=== PATIENT | female | born 1970 | race Hispanic/Latino ===

== ENCOUNTER → 2016-08-29 | Outpatient (CLI) | payer OTHER ==
--- NOTE | 2016-08-29 16:56 | REPMRS ---
Patient History The patient states she has not had a clinical breast exam in over a year. Digital Mammo Screening Bilat: August 29, 2016 - Exam #: [id number] Bilateral CC and MLO view(s) were taken. Technologist: Lor Hickey, Technologist Prior study comparison: August 23, 2014, digital mammo diagnostic bilateral performed at [facility]. June 09, 2013, digital mammo diagnostic bilateral performed at [facility]. April 08, 2012, digital mammo diagnostic bilateral performed at [facility]. FINDINGS: The breast tissue is heterogeneously dense. This may lower the sensitivity of mammography. There is a moderate amount of heterogeneously dense fibroglandular tissue which is fairly symmetric. There is no interval development of dominant mass, architectural distortion, or clustered microcalcification typical of malignancy. There has been no change in the appearance of the mammogram from the prior studies. ASSESSMENT: BI-RADS/ACR category 1 mammogram. Negative. Recommendation Routine screening mammogram of both breasts in 1 year (for women over age 40). This mammogram was interpreted with the aid of an FDA-approved computer-aided dectection system. Electronically Signed By: Matt Elliott MD 08/29/16 [id number]
== END ==
LOC: M RAD 16:10
PROVIDERS: ATTEND Internal Medicine
DX: Z12.31 Encounter for screening mammogram for malignant neoplasm of breast (principal)

== ENCOUNTER → 2016-10-29 | Day surgery (SDC) | payer OTHER ==
[~2016-10-29] VITALS: Ht 152.4 cm; Wt 64.9 kg
[~2016-10-29] MED LIST: ACETAMINOPHEN 650 MG SUPP As Ordered ONE; ACETAMINOPHEN 650 MG SUPP PR ONE; BUPIVACAINE HCL 0.5% 30 ML VIAL As Ordered ONE; COLA100C3 PO; CYCL5TA PO; GLYCOPYRROLATE INJ 0.2 MG/ML 2 ML VIAL As Ordered ONE; HYDROmorphone HCL 1 MG/ML SYRINGE (J1170) IV PRN; HYDROmorphone HCL 2 MG/ML 1ML VIAL (J1170) As Ordered ONE; IRON65TA PO; LIDOCAINE 2% INJ 100 MG/5 ML SDV (FOR ANES.) As Ordered ONE; LR 1,000 ML IV SCH; MIDAZOLAM INJ 2 MG/2 ML VIAL (J2250) As Ordered ONE; NS 1,000 ML IV SCH; ONDANSETRON 4MG/2ML VIAL (J2405) As Ordered ONE; ONDANSETRON 4MG/2ML VIAL (J2405) IV PRN; PERCOCET 5MG/325MG TAB PO PRN; PROPOFOL 200 MG/20 ML VIAL As Ordered ONE; ROCURONIUM BROMIDE 50 MG/5 ML VIAL As Ordered ONE; SODIUM CHLORIDE 0.9% 1000 ML IV SCH; dexameTHASONE 4 MG/ML 1ML VIAL (J1100) As Ordered ONE; fentaNYL 100 MCG/2 ML INJECTION (J3010) As Ordered ONE; fentaNYL 100 MCG/2 ML INJECTION (J3010) IV PRN; fentaNYL 250 MCG/5 ML INJECTION (J3010) As Ordered ONE
[2016-10-29 07:43] LABS: MEAN CORPUSCULAR HEMOGLOBIN 29.2 pg (27.0-33.0); MEAN CORPUSCULAR HGB CONC 34.8 g/dl (32.0-36.5); MEAN CORPUSCULAR VOLUME 83.8 fl (80.0-96.0); RED CELL DISTRIBUTION WIDTH 17.3 % (11.5-14.5); WHITE BLOOD COUNT 7.8 K/mm3 (4.0-10.0)
[2016-10-29 08:11] LABS: ANION GAP 7 MEQ/L (8-16); BLOOD UREA NITROGEN 12 MG/DL (7-18); CALCIUM LEVEL 8.4 MG/DL (8.5-10.1); CARBON DIOXIDE LEVEL 23 MEQ/L (21-32); CHLORIDE LEVEL 107 MEQ/L (98-107); CREATININE FOR GFR 0.69 MG/DL (0.55-1.02); GLOMERULAR FILTRATION RATE > 60.0 (>58); GLUCOSE, FASTING 99 MG/DL (70-105); POTASSIUM SERUM 3.5 MEQ/L (3.5-5.1); SODIUM LEVEL 137 MEQ/L (136-145)
[2016-10-29 13:00] VITALS: BP 119/72
--- NOTE | 2016-11-01 07:27 | RO ---
DATE OF PROCEDURE: 10/29/2016 PREOPERATIVE DIAGNOSIS: Chronic pelvic pain, abnormal uterine bleeding. POSTOPERATIVE DIAGNOSIS: Chronic pelvic pain, abnormal uterine bleeding, frozen pelvis, massive adhesions, cervical stenosis. OPERATION PROPOSED: Hysteroscopy, dilation and curettage (D and C), laparoscopy. OPERATION PERFORMED: Laparoscopy, dilatation of the cervix. SURGEON: Dr. Chucho Canchola WOODWORK SALVAGE INSPECTOR: Lamine ANESTHESIA: General plus local anesthetic for intraperitoneal procedures. ESTIMATED BLOOD LOSS: 25 mL. Under adequate anesthesia, prepped and draped in the lithotomy position, García catheter in the bladder draining clear urine, acetaminophen suppository 1300 mg per rectum, and sequentials on board. Time-out performed. Weighted speculum was placed in the vagina. The cervix is very high anterior, actually abnormally placed underneath the symphysis pubis, and the cervix was quite stenotic. We were able to get a small dilator in, in order to use it as anatomical probe; however, it did not go in significantly far enough as there seemed to be some obstruction at the isthmic junction between the cervix and uterus. Then reprepping and draping. A small subumbilical incision was made. Direct entry into the abdomen. No evidence of perforation, hemorrhage or bleeding. We immediately came in contact with massive abdominal adhesions going from the left side to the right side at the umbilical area, a thick veil obliterating the pelvic structures. We put a 5 mm port on the right side. We were unable to put a 5 mm port on the left side because we could not see initially. With the 5 mm port on the right side, we were able to move the adhesive bands away so we could get around with the camera and visualize the cul-de-sac. We were unable to identify the uterus initially because we thought it was in the pelvic cavity, but in fact it was stuck and adherent to the anterior abdominal wall and this is why the cervix was so stenotic and in an anatomically incorrect position. This lady had had two previous sections and apparently the uterus is fused to the anterior abdominal wall. Also, we were unable to see the ovary because the ovary itself was fused to the anterior abdominal wall on the left side. The probe itself was in the cervix, but we were unable to manipulate the uterus itself. The cul-de-sac was surprisingly clean. The right upper quadrant was clean. The left upper quadrant we could not visualize because of the thick omental adhesions. This lady has basically was is called a frozen pelvis and has chronic pelvic pain. She is non desiring of any more children and has abnormal uterine bleeding. This lady will be recommended to have a total abdominal hysterectomy (LEVON) and bilateral salpingectomy and attempt to conserve both ovaries, but possibly have to lose the one on the left which is adherent to the anterior abdominal wall. An ablation will not alleviate her issues and in fact we cannot even get into the uterus because it is anatomically into the anterior abdominal wall and with thermal surgery in the uterus we could potentially burn the abdominal wall. With that done, instrument and pad count correct, we deflated to 4 mm pressure, removed the 5 mm port, removed the mainstem port, put stitches in both areas, and removed the García catheter, the uterine elevator and tenaculum. The patient was sent to recovery in good condition. We will discuss options with her at her visit.
== END | disposition home or self-care (01) ==
LOC: M SDC 07:04
PROVIDERS: ATTEND Obstetrics & Gynecology
DX: R10.9 Unspecified abdominal pain (principal); N92.6 Irregular menstruation, unspecified; E78.5 Hyperlipidemia, unspecified; D64.9 Anemia, unspecified; F41.9 Anxiety disorder, unspecified; Z79.899 Other long term (current) drug therapy
CPT/HCPCS: 36415; 49320; 58555; 80048; 84702; 85027; J1100; J1170; J2250; J2405; J3010

== ENCOUNTER 2017-03-18 06:03 | Inpatient (IN) | payer OTHER ==
--- NOTE | 2017-03-15 16:54 | HPE ---
DATE OF ADMISSION: 03/18/2017 This lady has a history of chronic pelvic pain, abnormal uterine bleeding, cervical stenosis. She had a diagnostic laparoscopy back in October 2016 and continues to complain of pain post surgery. When we did laparoscopic evaluation, we found that we were unable to identify the uterus, because adhesions and omentum were stuck adherent to the anterior abdominal wall. The cervical canal was distorted as was the uterus. She had had two previous sections. The uterus was fused to the anterior abdominal wall. Could not see the ovary, because the ovary itself was fused to the anterior abdominal on the left side. This lady had at that time called frozen pelvis with chronic pelvic pain. Her options, if she wishes to have more babies, or were to have a total abdominal hysterectomy with bilateral salpingo-oophorectomy, attempt to conserve both ovaries, and ablation would not alleviate the issue of the pelvic pain. We had elected after multiple discussions to do a laparotomy, release of adhesions, salpingectomy as needed with oophorectomy on the offending side, and encouraged her to understand that there is a possibility of bowel resection with the bowel stuck to the anterior abdominal wall. After explaining the risks and benefits of surgery, hemorrhage, infection, perforation, , reoperation, resection, both she and understood, signed and witnessed consent form. The rest of her a history is that she had a laparoscopy in October 2016. She had an appendectomy ruptured in 2001. She had had three sections with a resection of tube; she is uncertain of which side. In 1995 tonsil and adenoidectomy. She had a total of three sections, two prior ones in 1994 and 1992, and the last definitive one in 2000. She does not have allergies but is sensitive to codeine and wishes to have Dilaudid for pain management. She is presently on iron, Colace, Prozac for anxiety, and Flexeril for chronic pelvic pain. Our objective is to possibly due a right salpingo-oophorectomy, release of adhesions, and leave the rest of the pelvis intact. On examination today, her blood pressure is 114/71, respirations are 18, pulse 80, temperature is 98.2. She is 137.6 pounds, and she is 5 feet 0 inches. The rest of the examination unremarkable. She is normocephalic, atraumatic. Neck: Full range of motion. Pupils equal and reactive to light. Chest is clear bilaterally to bases. No wheezes or rhonchi. No costovertebral angle (CVA) tenderness. Abdomen is soft but tender when one touches any area of her abdomen , especially because she has adhesions under the anterior abdominal wall. Bowel sounds are present. She has no rashes, lesions, or pruritus. No arthralgia, myalgia. No complaints of cough, wheezes, shortness of breath, or dyspnea on exertion. No chest pain. No bleeding. Neurologic complete. No incontinency, urgency, or frequency. No nausea, vomiting, diarrhea, or constipation. No diabetic issues. As mentioned, her FINANCIAL SERVICES COUNSELOR history is related to appendectomy, previous three sections. MEDICAL HISTORY: Unremarkable. FAMILY HISTORY: Noncontributory. SOCIAL HISTORY: She does not smoke, drink, abuse drugs. Is . No domestic violence. She has good support from her . In summary, we have a patient with chronic frozen pelvis, chronic pelvic pain, and attempted to do as much as possible, being conservative as possible. RAINA
[2017-03-18] VITALS (8 sets, daily range): BP systolic 100–126; BP diastolic 55–79
[~2017-03-18] VITALS: Ht 152.4 cm; Wt 62.1 kg
[~2017-03-18 06:03] MED LIST changes: -ACETAMINOPHEN 650 MG SUPP As Ordered ONE; -ACETAMINOPHEN 650 MG SUPP PR ONE; +ALEV220T26 PO; -BUPIVACAINE HCL 0.5% 30 ML VIAL As Ordered ONE; -COLA100C3 PO; +COLA100C5 PO; +CYCL10TA PO; -CYCL5TA PO; +CYCL5TAB PO; -GLYCOPYRROLATE INJ 0.2 MG/ML 2 ML VIAL As Ordered ONE; -HYDROmorphone HCL 1 MG/ML SYRINGE (J1170) IV PRN; -HYDROmorphone HCL 2 MG/ML 1ML VIAL (J1170) As Ordered ONE; -LIDOCAINE 2% INJ 100 MG/5 ML SDV (FOR ANES.) As Ordered ONE; -LR 1,000 ML IV SCH; -MIDAZOLAM INJ 2 MG/2 ML VIAL (J2250) As Ordered ONE; -NS 1,000 ML IV SCH; -ONDANSETRON 4MG/2ML VIAL (J2405) As Ordered ONE; -ONDANSETRON 4MG/2ML VIAL (J2405) IV PRN; -PERCOCET 5MG/325MG TAB PO PRN; -PROPOFOL 200 MG/20 ML VIAL As Ordered ONE; +PROZ20CA11 PO; -ROCURONIUM BROMIDE 50 MG/5 ML VIAL As Ordered ONE; -SODIUM CHLORIDE 0.9% 1000 ML IV SCH; -dexameTHASONE 4 MG/ML 1ML VIAL (J1100) As Ordered ONE; -fentaNYL 100 MCG/2 ML INJECTION (J3010) As Ordered ONE; -fentaNYL 100 MCG/2 ML INJECTION (J3010) IV PRN; -fentaNYL 250 MCG/5 ML INJECTION (J3010) As Ordered ONE
[2017-03-18] MEDS ORDERED: LR 1,000 ML IV ONE (06:15)
[2017-03-18] MEDS ORDERED: LIDOCAINE 1% MDV 20ML VIAL SC ONE (06:15)
[2017-03-18] MEDS ORDERED: ACETAMINOPHEN 650 MG SUPP PR ONE (06:15)
[2017-03-18 06:37] LABS: MEAN CORPUSCULAR HEMOGLOBIN 32.4 pg (27.0-33.0); MEAN CORPUSCULAR VOLUME 90.1 fl (80.0-96.0); RED CELL DISTRIBUTION WIDTH 12.1 % (11.5-14.5)
[2017-03-18 06:52] LABS: ANION GAP 6 MEQ/L (8-16); BLOOD UREA NITROGEN 8 MG/DL (7-18); CALCIUM LEVEL 8.7 MG/DL (8.5-10.1); CARBON DIOXIDE LEVEL 26 MEQ/L (21-32); CHLORIDE LEVEL 106 MEQ/L (98-107); CREATININE FOR GFR 0.72 MG/DL (0.55-1.02); GLOMERULAR FILTRATION RATE > 60.0 (>58); GLUCOSE, FASTING 95 MG/DL (70-105); POTASSIUM SERUM 3.5 MEQ/L (3.5-5.1); SODIUM LEVEL 138 MEQ/L (136-145)
[2017-03-18] MEDS ORDERED: SODIUM CHLORIDE 0.9% 1000 ML IV ONE (07:00)
[2017-03-18] MEDS ORDERED: BUPIVACAINE HCL 0.5% 10 ML VIAL As Ordered ONE (07:20)
[2017-03-18] MEDS ORDERED: ACETAMINOPHEN 650 MG SUPP As Ordered ONE (07:20)
[2017-03-18] MEDS ORDERED: cefoTEtan INJ 2GM VIAL (S0074) As Ordered ONE (07:41)
[2017-03-18] MEDS ORDERED: PROPOFOL 200 MG/20 ML VIAL As Ordered ONE (08:00)
[2017-03-18] MEDS ORDERED: MIDAZOLAM INJ 2 MG/2 ML VIAL (J2250) As Ordered ONE (08:00)
[2017-03-18] MEDS ORDERED: LIDOCAINE 2% JELLY 30 ML As Ordered ONE (08:00)
[2017-03-18] MEDS ORDERED: METOCLOPRAMIDE INJ 10MG/2ML VIAL (J2765) As Ordered ONE (08:00)
[2017-03-18] MEDS ORDERED: fentaNYL 100 MCG/2 ML INJECTION (J3010) As Ordered ONE ×2 (08:00→10:37)
[2017-03-18] MEDS ORDERED: LIDOCAINE 2% INJ 100 MG/5 ML SDV (FOR ANES.) As Ordered ONE (08:00)
[2017-03-18] MEDS ORDERED: NEOSTIGMINE 1MG/ML 5 ML SYRINGE (J2710) As Ordered ONE (08:07)
[2017-03-18] MEDS ORDERED: KETOROLAC 60 MG/2 ML VIAL (J1885) As Ordered ONE (08:08)
[2017-03-18] MEDS ORDERED: ONDANSETRON 4MG/2ML VIAL (J2405) As Ordered ONE (08:08)
[2017-03-18] MEDS ORDERED: dexameTHASONE 4 MG/ML 1ML VIAL (J1100) As Ordered ONE (08:10)
[2017-03-18] MEDS ORDERED: ePHEDrine SULFATE 25 MG/5 ML(5MG/ML) SYRINGE As Ordered ONE (08:23)
[2017-03-18] MEDS ORDERED: METHYLENE BLUE 0.5% (5MG/ML) 10 ML AMP (PROVAYBLUE)(Q9968 PER 1MG) As Ordered ONE (08:45)
[2017-03-18] MEDS ORDERED: ROCURONIUM BROMIDE 50 MG/5 ML VIAL/SYRINGE As Ordered ONE (09:09)
[2017-03-18] MEDS ORDERED: GLYCOPYRROLATE INJ 0.2 MG/ML 2 ML VIAL As Ordered ONE (10:08)
[2017-03-18] MEDS ORDERED: HYDROmorphone HCL 2 MG/ML 1ML VIAL (J1170) As Ordered ONE (10:08)
[2017-03-18] MEDS ORDERED: HYDROmorphone HCL 1 MG/ML SYRINGE (J1170) As Ordered ONE (10:52)
[2017-03-18] MEDS: HYDROmorphone HCL 1 MG/ML SYRINGE (J1170) IV PRN ×4 (10:56→11:16)
[2017-03-18] MEDS ORDERED: zolPIDEM TARTRATE 5 MG TAB PO PRN (11:00)
[2017-03-18] MEDS ORDERED: ONDANSETRON 4MG/2ML VIAL (J2405) IV PRN ×2 (11:00)
[2017-03-18] MEDS ORDERED: LR 1,000 ML IV SCH ×2 (11:00)
[2017-03-18] MEDS ORDERED: HYDROmorphone HCL 1 MG/ML SYRINGE (J1170) IV PRN ×2 (11:00→11:13)
[2017-03-18] MEDS ORDERED: PERCOCET 5MG/325MG TAB PO PRN (11:00)
[2017-03-18] MEDS: fentaNYL 100 MCG/2 ML INJECTION (J3010) IV PRN ×3 (11:30→11:40)
[2017-03-18] MEDS: ACETAMINOPH W/CODEINE #3 TAB UD PO PRN ×2 (13:00→20:52)
[2017-03-18] MEDS: FLUoxetine 20 MG CAP PO SCH (14:51)
[2017-03-18 16:17] LABS: MEAN CORPUSCULAR HEMOGLOBIN 31.5 pg (27.0-33.0); MEAN CORPUSCULAR HGB CONC 34.4 g/dl (32.0-36.5); MEAN CORPUSCULAR VOLUME 91.4 fl (80.0-96.0); RED CELL DISTRIBUTION WIDTH 12.4 % (11.5-14.5); WHITE BLOOD COUNT 13.3 K/mm3 (4.0-10.0)
[2017-03-18] MEDS: KETOROLAC 30 MG/ML VIAL (J1885) IV PRN (18:39)
[2017-03-18] MEDS ORDERED: NS 1,000 ML IV SCH (19:00)
[2017-03-19] VITALS: BP 121/70
[2017-03-19] MEDS: KETOROLAC 30 MG/ML VIAL (J1885) IV PRN ×3 (00:44→21:44)
[2017-03-19] MEDS: ACETAMINOPH W/CODEINE #3 TAB UD PO PRN ×5 (01:50→20:27)
[2017-03-19 04:00] VITALS: BP 102/56
[2017-03-19 08:00] VITALS: BP 121/73
[2017-03-19] MEDS: FLUoxetine 20 MG CAP PO SCH (08:30)
[2017-03-19 12:00] VITALS: BP 114/69
[2017-03-19 16:00] VITALS: BP 113/69
[2017-03-20 01:00] VITALS: BP 114/68
[2017-03-20] MEDS: ACETAMINOPH W/CODEINE #3 TAB UD PO PRN ×2 (01:28→06:12)
[2017-03-20] MEDS: KETOROLAC 30 MG/ML VIAL (J1885) IV PRN (04:06)
[2017-03-20] MEDS: FLUoxetine 20 MG CAP PO SCH (08:17)
[2017-03-20] MEDS ORDERED: INFLUENZA QUADRIVALENT PF VACCINE 0.5ML SYRINGE (90686) IM ONE (09:00)
[2017-03-20] MEDS ORDERED: ACET30TAB PO (09:50)
[2017-03-20 10:00] VITALS: BP 133/81
--- NOTE | 2017-03-23 13:20 | IPN ---
DATE: 03/19/2017 This lady is postop day #1, having had an extensive laparotomy, release of adhesions, release of the uterus to the anterior abdominal wall and right salpingo-oophorectomy. On her first postop day, her blood pressure is 102/56, respirations 18, pulse 91, temperature is 100.2. Hemoglobin 11.6, hematocrit 33.8 and platelets 245. On examination, the patient is normocephalic, atraumatic. Neck with full range of motion. Pupils equal and reactive to light. Lungs are clear bilaterally to the bases. No wheezes or rhonchi. Distal pulses symmetric. No evidence of DVT, PE or superficial phlebitis. No back tenderness. Abdomen is soft. Four quadrant bowel sounds are noted. We removed the pressure bandage and she had an incision which had a bit of bleeding because the initial incision that was made before this one was on a bevel and we had difficulty in closing it and approximating it; however, there is no evidence of active bleeding. No bruising. No infection. No inflammatory process at the present time. She has no rashes, lesions or pruritus. No arthralgia or myalgia. No complaints of cough, wheezes, shortness of breath or dyspnea on exertion. No chest pain. She is not bleeding. She is neuro complete. García catheter was removed and she is voiding well. Four quadrant bowel sounds are noted. Soft abdomen. She is presently taking full fluids and is advanced diet as tolerated. She has no diabetic issues. Her gyne history is the chronic pelvic pain that she had. PAST MEDICAL HISTORY: Unremarkable. PAST SURGICAL HISTORY: As in the history of present illness. FAMILY HISTORY: Noncontributory. She seems to be doing well and coping with her pain management today. We had to discuss options regarding home pain management. She seems to be doing well on Tylenol #3 and she had ordered some Dilaudid as well as Toradol; however, she does have some GI issues and cannot take ibuprofen as it gives her GI upset. Therefore, we settled on having her take Tylenol #3 and we organized for a separate prescription for Dilaudid to be filled at the pharmacy and both in conjunction should help control and maintain her pain. Our present management is to maintain pain control today and if so, the patient will be released tomorrow morning for followup in two weeks' time for incisional check and six weeks' time for regular checkup. We reviewed with her and her the operative procedure and the difficulty that we had in maintaining the uterus; however, we were able to extricate it from the anterior abdominal wall avoiding the hysterectomy that may have been the ultimate need if we could not successfully disengage the uterus from the anterior abdominal wall. The patient is happy to have pain management, moving well. Says her pain is about a 4/10 where before it was 8/10 and she is very happy with the outcome presently of the surgery.
--- NOTE | 2017-03-23 13:22 | DSES ---
DATE OF ADMISSION: 03/18/2017 DATE OF DISCHARGE: 03/20/2017 This lady was admitted for a laparotomy, extensive dissection and release and removal of adhesions, right salpingo-oophorectomy, cystoscopy because of extensive pelvic pain, which was documented visually by laparoscopy where she had a frozen pelvis and had the fundus of the uterus and the right side of the uterus fixed to the anterior abdominal wall on the right side, had extensive adhesions to the rectus muscle from previous surgery and possibly failure to close the fascia. The patient's postoperative course was quite unremarkable in that we were able to deal with her pain and we laid out a plan of pain management for her. On discharge today, her hemoglobin was 11.6, hematocrit 33.8 and platelets are 245. Her admitting hemoglobin was 14.4, hematocrit 40.0, platelets were 302. Her chemistry was all normal. Her GFR was greater than 60, anion gap 6. Her vital signs on discharge, her blood pressure is 133/81, respirations were 16, pulse 91 and temperature is 98.3. Pathology indicated an ovary and right fallopian tube as right salpingo-oophorectomy. No pathologic features, unremarkable fallopian tube with adhesions to the right ovary. The rest of the examination was unremarkable. She was normocephalic, atraumatic. Neck with full range of motion. Pupils equal and reactive to light. Distal pulses were symmetric. No evidence of DVT, PE or superficial phlebitis. Chest was clear bilaterally to the bases. No wheezes or rhonchi. No costovertebral angle tenderness. Abdomen was soft. Four quadrant bowel sounds were noted. Incision was clean and dry. No evidence of weeping, bleeding or infection. She had no rashes, lesions or pruritus. She had no arthralgia or myalgia. No complaints of cough, wheezes, shortness of breath or dyspnea on exertion. No chest pain. Not bleeding. Neuro complete. No evidence of incontinence, urgency or frequency. No nausea, vomiting, diarrhea or constipation. She does not smoke, drink, abuse drugs and she is with good support and no domestic violence. On discharge, she had some bleeding and she was told that this could possibly be her period. At this point, the patient was quite upset that she did not have a hysterectomy and in fact we had extensively and thoroughly discussed with her and her in both Welsh and Macedonian the operative procedure and saline to be able to extricate or release the uterus would in fact possibly have end-stage abdominal hysterectomy with possible bowel resection and we did have Dr. Kemp on standby. He had previously been informed regarding the extensiveness of the adhesions. In fact, at the time of surgery, we had Dr. Dinh come in to view the operative procedure, as it took us more than an hour and 8 minutes to actually extricate the uterus from the anterior abdominal wall. In any case, we did not require to do the hysterectomy because were able to free up uterus and again we reiterated to both the patient and her the intention was not to do a blanket hysterectomy in the first place, it was only as a last option if we could not conserve the uterus. We did give her pain medications to go home with , both prescription and medications from flex machine . The patient is to come for a 2-week incision check and a 6-week postop check. In the interim, the patient left in excellent condition with adequate pain management and thorough revisiting the operative procedure and the rationale behind the procedure. RAINA
--- NOTE | 2017-03-24 09:37 | RO ---
DATE OF PROCEDURE: 03/18/2017 PREOPERATIVE DIAGNOSIS: Chronic of right lower quadrant pain. POSTOPERATIVE DIAGNOSIS: Chronic right lower quadrant pain, frozen pelvis to the fundus to the anterior abdominal wall from previous surgery. OPERATION PROPOSED: Laparotomy, removal of adhesions of the uterus to the anterior abdominal wall and right salpingo-oophorectomy. Cystoscopy with methylene blue. OPERATION PERFORMED: Lysis of massive adhesions of the anterior abdominal wall to the right uterine fundus of the uterus and right salpingo-oophorectomy. Cystoscopy with methylene blue. SURGEON: Yariel Canchola MD HEAT SET OPERATOR: ANESTHESIA: General, plus local anesthetic for intraperitoneal procedures. ESTIMATED BLOOD LOSS: About 100 mL. DESCRIPTION OF PROCEDURE: Under adequate anesthesia, prepped and draped in the supine position, García catheter in the bladder draining clear urine. Antibiotics appropriately on board. Sequentials on board. Acetaminophen suppository 1300 mg per rectum. Time-out done. A Pfannenstiel incision was made through the previous Panafil incision, which had been beveled on one side was very difficult to open and was repaired post procedure. We were able to palpate the fundus of the uterus adherent to the right rectus muscle and appeared that the fascia was not closed and the right fundus of the uterus was attached to the underside of the rectus as well as to the peritoneum. It took us 1 hour and 9 minutes in order to establish peritoneal entry making sure not to damage or become in contact with the bowel. The bits of fascia that we could find were identified with Kochers and then by sharp and blunt dissection we were slowly able to establish a window of opportunity. We viewed the left side of the pelvis, which was completely normal. The left ovary and tube were normal. On digital examination, the cul-de-sac was absolutely clear. The anterior aspect of the bladder showed a small fibroid, which was inconsequential at this time as it was not affecting anything but the whole right side of the fundus and down to the uterine it artery appeared to be fixed to the underside of the abdominal wall. We eventually able to establish clearing on the posterior left lateral side, the right side where the fibroid was and then had 4 cm adherence of the uterus to the underside of the anterior abdominal wall. Under appropriate conditions, very carefully we were able to remove that and we noted that the uterus off from that with sharp dissection. We had Dr. Dinh in to evaluate visually, but there was no evidence of damage to bowel and we were able to carry on. Once we were able to free the uterus from that area, we then with a Samia elevated the right ovary and tube and we were able to remove the right ovary and tube on that side so that it would no longer be septic to adhesions. With that done, we then oversewed the area of rawness on the right side. We then irrigated out and made sure that the cul-de-sac and everything else was clear and no evidence of active bleeding. We then draped the uterus in Surgicel, both the right and left side and in the anterior aspect where the small little fibroid was. The uterus was free and mobile. It was replaced back in its anatomically correct position and then we took another 1/2 hour to close the abdomen. We were unable to identify any peritoneum on the right side and therefore, we closed over the muscle area again ligating underneath some Surgicel and then the fascia we were able to close with Vicryl #0 starting in each corner and meeting in the middle. With that done and instrument pad count correct, we then underscored the incision on the upper side because it was overlapping from previous surgery and then we closed with a subcutaneous #4-0 Vicryl. Marcaine 0.25%, 10 mL to the incisional site and Telfa with a pressure bandage. The patient was then taken to recovery room in good condition. Prior to her being taken to the recovery room, we did a cystoscopy with methylene blue dye and were able to evaluate the ureter on the right side and the ureter on the left side and they was good flow. The bladder itself appeared to be intact and there was no deficit. Then, the patient was taken to recovery in good condition.
== END 2017-03-20 11:20 | disposition home or self-care (01) | DRG 743 ==
LOC: M OR 06:03 → M PED 12:09
PROVIDERS: ADMIT Obstetrics & Gynecology; ATTEND Obstetrics & Gynecology
PROC: 0UN90ZZ Release Uterus, Open Approach (ICD-10-PCS; 2017-03-18)
PROC: 0DNS0ZZ (ICD-10-PCS; 2017-03-18)
PROC: 0UT50ZZ Resection of Right Fallopian Tube, Open Approach (ICD-10-PCS; 2017-03-18)
PROC: 0TJB8ZZ Inspection of Bladder, Via Natural or Artificial Opening Endoscopic (ICD-10-PCS; 2017-03-18)
PROC: 0UT00ZZ Resection of Right Ovary, Open Approach (ICD-10-PCS; principal; 2017-03-18 07:30)
DX: N94.89 Other specified conditions associated with female genital organs and menstrual cycle (principal); N73.6 Female pelvic peritoneal adhesions (postinfective)